=== PATIENT | male | born 1975 | race Caucasian/White ===

== ENCOUNTER 2025-07-11 06:32 | Inpatient (IN) | payer MEDICAID, OTHER ==
[~2025-07-11] VITALS: Ht 185.4 cm; Wt 136.1 kg
[2025-07-11 07:13] LABS: PLATELET COUNT (AUTO) 220 K/uL (150-450); RED BLOOD CELL COUNT(AUTO) 4.74 MIL/uL (4.5-6.0); RED CELL DISTRIBUTION WIDTH 15.5 % (11.5-15.0); WHITE BLOOD COUNT (AUTO) 5.5 K/uL (4.3-11.0)
[2025-07-11 07:21] LABS: CALCIUM, SERUM 8.4 mg/dL (8.5-10.1); CREATININE 0.6 mg/dL (0.6-1.3); SODIUM SERUM 143.0 mmol/L (136-145); UREA NITROGEN, BLOOD 3.0 mg/dL (7-18)
[2025-07-11 07:44] LABS: ASPARTATE AMINOTRANSFERASE 152.0 U/L (15-37); TOTAL PROTEIN, SERUM 7.6 g/dL (6.4-8.2)
[2025-07-11] MEDS ORDERED: oxyCODONE/APAP (5/325 MG) 1 UDTAB TABLET ONE (07:49)
[2025-07-11] MEDS ORDERED: DILTIAZEM HCL 25 MG IV ONE ×2 (07:49→09:02)
[2025-07-11] MEDS: DILTIAZEM HCL 25 MG IV IV ONE ×2 (08:08→08:56)
[2025-07-11] MEDS: oxyCODONE/APAP (5/325 MG) 1 UDTAB TABLET PO ONE (08:09)
[2025-07-11 08:47] LABS: AMPHETAMINE, URINE NEGATIVE (NEGATIVE); BARBITURATE, URINE NEGATIVE (NEGATIVE); BENZODIAZEPINE, URINE NEGATIVE (NEGATIVE); CANNABINOID, URINE NEGATIVE (NEGATIVE); COCCAINE, URINE NEGATIVE (NEGATIVE); OPIATE, URINE NEGATIVE (NEGATIVE)
[2025-07-11] MEDS ORDERED: MORPHINE SULFATE INJ 4 MG/ML DISP.SYRIN ONE (09:29)
[2025-07-11] MEDS: MORPHINE SULFATE INJ 2 MG/ML DISP.SYRIN IV ONE (09:31)
[2025-07-11] MEDS ORDERED: LISI20TA31 PO (09:52)
[2025-07-11] MEDS ORDERED: METF-442 PO (09:52)
[2025-07-11] MEDS ORDERED: METH5TAB2 PO (09:52)
[2025-07-11] MEDS ORDERED: RIVA15TA PO (09:52)
[2025-07-11] MEDS ORDERED: AMLO10TA4 PO (09:52)
[2025-07-11] MEDS ORDERED: LABETALOL HCL IV 100MG VIAL ONE (10:14)
[2025-07-11] MEDS: LABETALOL HCL IV 100MG VIAL IV ONE ×2 (10:24→15:59)
[2025-07-11] MEDS ORDERED: Z GUARD REMEDY 4 OZ OINT TP PRN (10:30)
[2025-07-11] MEDS ORDERED: MAGNESIUM HYDROXIDE 30 ML UDC PO PRN (10:30)
[2025-07-11] MEDS ORDERED: HYDROCODONE/APAP 5/325MG TABLET PO PRN (10:30)
[2025-07-11] MEDS ORDERED: ENOXAPARIN SODIUM 40 MG/0.4 ML DISP.SYRIN SQ SCH (11:00)
[2025-07-11] MEDS: LORAZEPAM INJ 2 MG/ML VIAL IM PRN (12:25)
[2025-07-11 13:00] VITALS: BP 238/138; TEMP 98.6; O2SAT 98
[2025-07-11] MEDS: DILTIAZEM HCL CD 240 MG PO SCH (13:05)
[2025-07-11] MEDS: ACETAMINOPHEN 325 MG TABLET PO PRN (13:21)
[2025-07-11] MEDS: HYDROCODONE/APAP 10/325MG TABLET PO PRN (14:18)
[2025-07-11] MEDS ORDERED: CHLORDIAZEPOXIDE HCL 25 MG CAPSULE PO SCH (14:30)
[2025-07-11] MEDS: FOLIC ACID 1 MG TABLET PO SCH (14:33)
[2025-07-11] MEDS: THIAMINE HCL 100 MG TABLET PO SCH (14:33)
[2025-07-11] MEDS: CHLORDIAZEPOXIDE HCL 25 MG CAPSULE PO ONE (14:40)
[2025-07-11] MEDS: LORAZEPAM INJ 2 MG/ML VIAL IM ONE (14:41)
[2025-07-11] MEDS: CHLORDIAZEPOXIDE HCL 25 MG CAPSULE PO SCH (14:43)
[2025-07-11 17:00] VITALS: BP 250/114; TEMP 98.2; O2SAT 98
[2025-07-11] MEDS: hydrALAZINE HCL IV 20 MG VIAL IV ONE (18:49)
[2025-07-11] MEDS: METHADONE HCL 10 MG TABLET PO ONE (22:02)
[2025-07-11] MEDS: CLONIDINE HCL 0.1 MG TABLET PO ONE (22:03)
[2025-07-12] VITALS (9 sets, daily range): BP systolic 150–220; BP diastolic 98–183; TEMP 97.7–98.8; O2SAT 93–97
[2025-07-12] MEDS: LORAZEPAM INJ 2 MG/ML VIAL IV PRN (00:14)
[2025-07-12 07:37] LABS: PLATELET COUNT (AUTO) 213 K/uL (150-450); RED BLOOD CELL COUNT(AUTO) 4.91 MIL/uL (4.5-6.0); RED CELL DISTRIBUTION WIDTH 15.5 % (11.5-15.0); WHITE BLOOD COUNT (AUTO) 5.5 K/uL (4.3-11.0)
[2025-07-12 08:22] LABS: ASPARTATE AMINOTRANSFERASE 118.0 U/L (15-37); CALCIUM, SERUM 9.0 mg/dL (8.5-10.1); CREATININE 0.7 mg/dL (0.6-1.3); PHOSPHORUS 4.4 mg/dL (2.5-4.9); SODIUM SERUM 138.0 mmol/L (136-145); TOTAL PROTEIN, SERUM 8.0 g/dL (6.4-8.2); UREA NITROGEN, BLOOD 9.0 mg/dL (7-18)
[2025-07-12] MEDS: RIVAROXABAN 15 MG TABLET PO SCH (08:31)
[2025-07-12] MEDS: LISINOPRIL (20MG) 20 MG TABLET PO SCH ×2 (08:32→09:30)
[2025-07-12] MEDS: METFORMIN 500 MG TABLET PO SCH (08:33)
[2025-07-12] MEDS: PANTOPRAZOLE 40 MG TABLET.DR PO SCH (08:33)
[2025-07-12] MEDS: METHADONE HCL 10 MG TABLET PO SCH (08:33)
[2025-07-12 08:34] LABS: LDL 141.0 mg/dL (0-99)
[2025-07-12] MEDS ORDERED: AMLODIPINE BESYLATE 10 MG TABLET PO SCH (09:00)
[2025-07-12] MEDS: ONDANSETRON HCL/PF 4 MG/2 ML VIAL IVP PRN (11:38)
[2025-07-12] MEDS: MAG HYDROX/AL HYDROX/SIMETH 30 ML UDC PO PRN (21:32)
[2025-07-13] VITALS: BP 185/116; TEMP 98.4; O2SAT 95
[2025-07-13 04:00] VITALS: BP 133/101; TEMP 98.2; O2SAT 100
[2025-07-13 06:49] LABS: PLATELET COUNT (AUTO) 200 K/uL (150-450); RED BLOOD CELL COUNT(AUTO) 4.72 MIL/uL (4.5-6.0); RED CELL DISTRIBUTION WIDTH 15.6 % (11.5-15.0); WHITE BLOOD COUNT (AUTO) 5.6 K/uL (4.3-11.0)
[2025-07-13 07:11] LABS: CALCIUM, SERUM 8.9 mg/dL (8.5-10.1); CREATININE 0.7 mg/dL (0.6-1.3); PHOSPHORUS 4.4 mg/dL (2.5-4.9); SODIUM SERUM 137.0 mmol/L (136-145); UREA NITROGEN, BLOOD 13.0 mg/dL (7-18)
[2025-07-13 08:00] VITALS: BP 182/102; TEMP 98.1; O2SAT 93
[2025-07-13] MEDS: METOPROLOL TARTRATE 50 MG TABLET PO SCH (11:58)
[2025-07-13] MEDS: MUPIROCIN OINT 2% 22 GM TUBE NS SCH (11:59)
[2025-07-13 12:00] VITALS: BP 183/116; TEMP 98.8; O2SAT 93
[2025-07-13 16:00] VITALS: BP 104/67; TEMP 96.5; O2SAT 93
[2025-07-13 20:00] VITALS: BP 163/134; TEMP 98.2; O2SAT 95
[2025-07-13] MEDS: LORAZEPAM 1 MG TABLET PO PRN (21:07)
[2025-07-14 04:00] VITALS: BP 180/97; TEMP 97; O2SAT 94
[2025-07-14 06:20] LABS: PLATELET COUNT (AUTO) 192 K/uL (150-450); RED BLOOD CELL COUNT(AUTO) 4.74 MIL/uL (4.5-6.0); RED CELL DISTRIBUTION WIDTH 15.2 % (11.5-15.0); WHITE BLOOD COUNT (AUTO) 6.5 K/uL (4.3-11.0)
[2025-07-14 06:48] LABS: PHOSPHORUS 3.4 mg/dL (2.5-4.9)
[2025-07-14 06:50] LABS: ASPARTATE AMINOTRANSFERASE 128.0 U/L (15-37); CALCIUM, SERUM 8.6 mg/dL (8.5-10.1); CREATININE 0.9 mg/dL (0.6-1.3); SODIUM SERUM 135.0 mmol/L (136-145); TOTAL PROTEIN, SERUM 7.8 g/dL (6.4-8.2); UREA NITROGEN, BLOOD 15.0 mg/dL (7-18)
[2025-07-14 08:00] VITALS: BP 182/110; TEMP 97.8; O2SAT 96
[2025-07-14 08:10] VITALS: BP 182/110
[2025-07-14] MEDS ORDERED: NITROGLYCERIN 30 GM TUBE TP SCH (10:00)
== END 2025-07-14 09:35 | disposition left against medical advice (07) | DRG 199 ==
LOC: ER 06:50 → TELE1 11:38 → EDBD 11:38 → TELE1 07-13 00:03 → MEDSG1 07-13 15:40
DX: I16.0 Hypertensive urgency (principal); G72.1 Alcoholic myopathy; Z59.00 Homelessness unspecified; I48.91 Unspecified atrial fibrillation; F10.139 Alcohol abuse with withdrawal, unspecified; G47.33 Obstructive sleep apnea (adult) (pediatric); E66.01 Morbid (severe) obesity due to excess calories; K70.10 Alcoholic hepatitis without ascites; Z88.2 Allergy status to sulfonamides; F11.23 Opioid dependence with withdrawal; Z68.39 Body mass index [BMI] 39.0-39.9, adult; R73.03 Prediabetes; Z91.199 Patient's noncompliance with other medical treatment and regimen due to unspecified reason; M25.551 Pain in right hip; R74.01 Elevation of levels of liver transaminase levels; K76.0 Fatty (change of) liver, not elsewhere classified; I10 Essential (primary) hypertension; Z96.641 Presence of right artificial hip joint; G89.29 Other chronic pain
CPT/HCPCS: 36415; 71045-TC; 73552; 76700-TC; 80048-TC; 80053-TC; 80061-TC; 80076-TC; 83735-TC; 83880; 84100-TC; 84439-TC; 84443-TC; 84484-TC; 85025-TC; 87081-TC; 93307-TC; 97110-TC; 97116-TC; 97530-TC; 97535-TC; G0378; J0360; J2060; J2270; J2405; J3490